=== PATIENT | female | born 1980 | race African-American/Black ===

== ENCOUNTER 2024-09-13 08:38 | Emergency (ER) | payer OTHER, MEDICARE ==
[~2024-09-13] VITALS: Ht 167.6 cm; Wt 90.7 kg
[2024-09-13] MEDS ORDERED: CYCL5TAB PO (09:56)
[2024-09-13] MEDS ORDERED: CYCLOBENZAPRINE 10 MG TABLET ONE (09:59)
[2024-09-13] MEDS ORDERED: IBUPROFEN 400 MG TABLET ONE (09:59)
[2024-09-13] MEDS: CYCLOBENZAPRINE 10 MG TABLET PO ONE (10:02)
[2024-09-13] MEDS: IBUPROFEN 400 MG TABLET PO ONE (10:03)
[2024-09-13 10:34] VITALS: BP 124/84; TEMP 98.2; O2SAT 100
== END 2024-09-13 10:35 | disposition home or self-care (01) ==
LOC: ER 08:46
DX: M54.2 Cervicalgia (principal); R10.9 Unspecified abdominal pain; M54.9 Dorsalgia, unspecified; V43.52XA Car driver injured in collision with other type car in traffic accident, initial encounter; Y93.89 Activity, other specified; Y92.89 Other specified places as the place of occurrence of the external cause; Y99.8 Other external cause status